=== PATIENT | male | born 1965 | race African-American/Black ===

== ENCOUNTER 2018-04-21 13:51 | Emergency (ER) | payer MEDICAID ==
[~2018-04-21] VITALS: Ht 185.4 cm; Wt 61.0 kg
[~2018-04-21 13:51] MED LIST: CALC355O3 PO; CLOP75TA15 PO; FLO0.4C PO; HYDR-565 PO; LISI-604 PO; METO25TA6 PO; OMEP20CA4 PO; SIMV20TA5 PO
[2018-04-21] MEDS ORDERED: normal saline 1000ML IV soln IVB ONE (14:25)
[2018-04-21] MEDS ORDERED: aspirin 81mg tab.chew PO ONE (14:25)
[2018-04-21 14:47] LABS: ALANINE AMINOTRANSFERASE 32 U/L (12-78); ALBUMIN 4.3 G/DL (3.4-5.0); ALBUMIN/GLOBULIN RATIO 1.1 (1.1-1.5); ALKALINE PHOSPHATASE 103 IU/L (46-116); ANION GAP 8 (8-16); ASPARTATE AMINO TRANSFERASE 31 U/L (10-37); BILIRUBIN,TOTAL 1.5 MG/DL (0.1-1.0); BLOOD UREA NITROGEN 17 MG/DL (7-18); BUN/CREATININE RATIO 11.2 (5.4-32.0); CHLORIDE 101 MMOL/L (99-107); CREATININE 1.52 MG/DL (0.60-1.10); GLUCOSE 78 MG/DL (70-104); SODIUM 136 MMOL/L (135-145); TOTAL CARBON DIOXIDE 26.6 MMOL/L (24-32); TOTAL PROTEIN 8.2 G/DL (6.4-8.2); eGFR 59 ML/MIN
[2018-04-21 15:12] LABS: BASOPHILS # (AUTO) 0.1 X10'3 (0-0.2); BASOPHILS % (AUTO) 1.8 % (0-1); EOSINOPHILS % (AUTO) 0.4 % (0-6); HEMATOCRIT 44.1 % (42.0-52.0); HEMOGLOBIN 14.8 g/dl (14.0-17.9); LYMPHOCYTES # (AUTO) 1.6 X10'3 (1.1-4.8); MEAN CORPUSCULAR HEMOGLOBIN 30.3 PG (27.0-31.0); MEAN CORPUSCULAR HGB CONC 33.5 % (33.0-36.5); MEAN CORPUSCULAR VOLUME 90.4 FL (78-98); MEAN PLATELET VOLUME 8.2 FL (7.4-10.4); MONOCYTES # (AUTO) 0.4 X10'3 (0-0.9); MONOCYTES % (AUTO) 7.4 % (2-12); NEUTROPHILS # (AUTO) 3.9 X10'3 (1.8-7.7); NEUTROPHILS % (AUTO) 64.4 % (42-75); PLATELET COUNT 210 X10'3 (140-440); RED BLOOD COUNT 4.88 X10'6 (4.70-6.10); RED CELL DISTRIBUTION WIDTH 13.5 % (11.5-14.5)
[2018-04-21 15:32] LABS: PARTIAL THROMBOPLASTIN TIME 28 SECONDS (22-32); PROTHROMBIN TIME 10.7 SECONDS (9.0-12.0)
[2018-04-21 15:36] LABS: CLARITY,URINE CLEAR (Clear); COLOR,URINE YELLOW (Yellow); GLUCOSE, URINE NEGATIVE (Neg); KETONES,URINE TRACE mg/dl (Neg); LEUKOCYTE ESTERASE ,URINE NEGATIVE (Neg); NITRITES, URINE NEGATIVE (Neg); OCCULT BLOOD,URINE NEGATIVE (Neg); PROTEIN,URINE TRACE mg/dl (Neg)
[2018-04-21 15:38] LABS: UA COLLECTION TYPE CLN CATCH MIDSTREAM
[2018-04-21 15:43] LABS: BACTERIA,URINE NONE SEEN /HPF (Neg); MUCUS STRANDS FEW /LPF (Neg); RBC,URINE NONE SEEN /HPF (0-2); SQUAMOUS EPITHELIAL CELL,UR NONE SEEN /LPF (FEW); WBC,URINE 0-4 /HPF (0-4)
[2018-04-21] MEDS ORDERED: tamsulosin 0.4mg capsule PO ONE (16:25)
[2018-04-21] MEDS ORDERED: FLO0.4C PO (16:25)
[2018-04-21] MEDS ORDERED: HYDR-569 PO (16:25)
[2018-04-21] MEDS ORDERED: NAPR-56 PO (16:25)
[2018-04-21 16:39] VITALS: BP 106/81
== END 2018-04-21 16:41 | disposition home or self-care (01) ==
LOC: ER 13:53
DX: N20.0 Calculus of kidney (principal); I49.9 Cardiac arrhythmia, unspecified; I11.0 Hypertensive heart disease with heart failure; I50.9 Heart failure, unspecified; I25.2 Old myocardial infarction; F17.210 Nicotine dependence, cigarettes, uncomplicated; Z98.61 Coronary angioplasty status; Z98.890 Other specified postprocedural states; Z79.899 Other long term (current) drug therapy
CPT/HCPCS: 36415; 71045; 74176; 80053; 81001; 84484; 85025; 85610; 85730; 93005; 96360; 99285; J7030